=== PATIENT | male | born 1980 | race Caucasian/White ===

== ENCOUNTER 2025-03-04 11:19 | Emergency (ER) | payer OTHER ==
[2025-03-04 12:08] VITALS: BP 146/95; PULSE 99; RESP 20; TEMP 98.6; BMI 25.3
== END 2025-03-04 12:02 | disposition home or self-care (01) ==
LOC: JER 11:19 → JERFT 11:19
DX: S31.813A Puncture wound without foreign body of right buttock, initial encounter (principal); W54.0XXA Bitten by dog, initial encounter
CPT/HCPCS: 99283-25